=== PATIENT | female | born 1960 | race Caucasian/White ===

== ENCOUNTER 2017-10-30 10:53 | Day surgery (SDC) | payer BC ==
[2017-10-30] VITALS (13 sets, daily range): BP systolic 116–167; BP diastolic 70–105
[~2017-10-30] VITALS: Ht 162.6 cm; Wt 103.0 kg
[2017-10-30] MEDS ORDERED: normal saline 1000ml 1,000 ML IV SCH (11:15)
[2017-10-30] MEDS ORDERED: diphenhydrAMINE 25mg capsule PO PRN (11:15)
[2017-10-30] MEDS ORDERED: LORazepam 0.5 MG tablet PO PRN (11:15)
[2017-10-30] MEDS ORDERED: iohexol 350MG/ML 100ml bottle IV ONE (11:52)
[2017-10-30] MEDS ORDERED: LIDOcaine 1%/PF (10mg/ml) 5ml vial ONE (11:52)
[2017-10-30] MEDS ORDERED: iohexol 350 MG/ML 50ML vial IV ONE (11:52)
[2017-10-30] MEDS ORDERED: VALS1TAB73 PO (12:04)
[2017-10-30] MEDS ORDERED: METO100T7 PO (12:04)
[2017-10-30] MEDS ORDERED: CLOP75TA15 PO (12:04)
[2017-10-30] MEDS ORDERED: FIBER (12:04)
[2017-10-30] MEDS ORDERED: ASPI-611 PO (12:04)
[2017-10-30] MEDS ORDERED: ATOR10TA87 PO (12:04)
[2017-10-30] MEDS ORDERED: NITR0.4T51 SL (12:04)
[2017-10-30] MEDS ORDERED: midazolam 2 mg/2 ml injection ONE ×2 (12:18→13:02)
[2017-10-30] MEDS ORDERED: fentaNYL/PF 50MCG/1 ML 2ML syringe ONE ×2 (12:18→13:10)
[2017-10-30] MEDS ORDERED: nitroGLYCERIN-Tridil 50MG/D5W 250 ML IV ONE (13:05)
[2017-10-30] MEDS ORDERED: OXAZEpam 15mg capsule PO PRN (15:00)
[2017-10-30] MEDS ORDERED: ondansetron/PF 4mg/2ml inj IV PRN (15:00)
[2017-10-30] MEDS ORDERED: HYDROcodone/acetaminophen 10/325mg tab PO PRN (15:00)
[2017-10-30] MEDS ORDERED: nitroGLYCERIN 0.4mg SUBLingual tab SL PRN (15:00)
[2017-10-30] MEDS ORDERED: acetaminophen 325mg tablet PO PRN (15:00)
[2017-10-30] MEDS ORDERED: proCHLORperazine 10 MG/2 ml inj IV PRN (15:00)
[2017-10-30] MEDS ORDERED: HYDROcodone/acetaminophen 5mg/325mg tablet PO PRN (15:00)
== END 2017-10-30 19:45 | disposition home or self-care (01) ==
LOC: SSTAY O 10:53
PROVIDERS: ATTEND Internal Medicine Cardiovascular Disease
DX: I25.10 Atherosclerotic heart disease of native coronary artery without angina pectoris (principal); I25.2 Old myocardial infarction; I10 Essential (primary) hypertension; E78.5 Hyperlipidemia, unspecified; F17.210 Nicotine dependence, cigarettes, uncomplicated; Z86.74 Personal history of sudden cardiac arrest; Z95.5 Presence of coronary angioplasty implant and graft; Z79.82 Long term (current) use of aspirin; Z79.899 Other long term (current) drug therapy
CPT/HCPCS: 93458; 99152; 99153; A6257; C1760; C1769; J1644; J2001; J2250; J3010; J3490; J7030; Q0163; Q9967; A4620